=== PATIENT | female | born 1955 | race Caucasian/White ===

== ENCOUNTER 2025-02-27 10:24 | Day surgery (SDC) | payer MEDICARE, BC ==
[~2025-02-27] VITALS: Ht 165.1 cm; Wt 88.8 kg
[~2025-02-27 10:24] MED LIST: Lactated Ringer's 1,000 ML IV ONE; Lidocaine HCl 2% 10 ML SDA ONE
[2025-02-27] MEDS ORDERED: CeFAZolin Sodium 2,000 MG VIAL ONE (10:32)
[2025-02-27] MEDS ORDERED: CITALOPRAM HBR20 M9 PO (10:43)
[2025-02-27] MEDS ORDERED: FENOFIBRATE145 MG PO (10:43)
[2025-02-27] MEDS ORDERED: AMLODIPINE BESYL5 MG PO (10:43)
[2025-02-27] MEDS ORDERED: LISI20 PO (10:43)
[2025-02-27] MEDS ORDERED: Lactated Ringer's 1,000 ML IV ONE (11:01)
[2025-02-27] MEDS ORDERED: FentaNYL Citrate 50 MCG/ML 2 ML Injection ONE ×2 (11:06→13:28)
[2025-02-27] MEDS ORDERED: propofoL 20 ML IV ONE (11:06)
[2025-02-27] MEDS ORDERED: Midazolam HCl 1MG / ML 2ML Vial ONE (11:06)
[2025-02-27] MEDS ORDERED: HYDROmorphone HCl/Pf 1MG SYR ONE (11:19)
--- NOTE | 2025-02-27 11:29 | NUR ---
02/27/25 Catalino Rhodes 1125 PT RESTING ON GURNEY WITH EYES CLOSED. PT OPENS EYES TO GENTLE VERBAL STIMULI. PT DENIES NEEDS AT THIS TIME. CALL LIGHT WITH IN REACH.
[2025-02-27] MEDS ORDERED: Ondansetron HCl 2 MG / ML 2ML Vial ONE (12:31)
[2025-02-27] MEDS ORDERED: Dexamethasone Sod Phos 10 MG/ML 1ML VIAL ONE (12:31)
[2025-02-27] MEDS ORDERED: Phenylephrine HCl 100 MCG/ML-NS 10MLSYR (1MG/10ML) ONE (12:31)
[2025-02-27] MEDS ORDERED: Ketorolac Tromethamine 30mg Vial ONE (13:10)
--- NOTE | 2025-02-27 14:07 | NUR ---
02/27/25 1407 Gita Barrera AT BEDSIDE
[2025-02-27] MEDS ORDERED: HYDROcodone 5-APAP 325 TAB ONE (14:10)
== END 2025-02-27 15:00 | disposition home or self-care (01) ==
LOC: ORSCSDS 10:24
PROVIDERS: Orthopaedic Surgery
PROC: 0RQT0ZZ Repair Left Carpometacarpal Joint, Open Approach (ICD-10-PCS; principal; 2025-02-27 12:00)
DX: M18.12 Unilateral primary osteoarthritis of first carpometacarpal joint, left hand (principal); I10 Essential (primary) hypertension; E78.00 Pure hypercholesterolemia, unspecified; F32.A Depression, unspecified; Z87.891 Personal history of nicotine dependence; Z79.899 Other long term (current) drug therapy
CPT/HCPCS: A9270; C1713; J0690; J1100; J1171; J1885; J2003; J2250; J2371; J2405; J2704; J3010; J7120

== ENCOUNTER 2025-06-10 12:06 | Day surgery (SDC) | payer MEDICARE, BC ==
[~2025-06-10] VITALS: Ht 165.1 cm; Wt 84.9 kg
[~2025-06-10 12:06] MED LIST changes: +AMLODIPINE BESYL5 MG PO; +CITALOPRAM HBR20 M9 PO; +FENOFIBRATE145 MG PO; +Glycopyrrolate 0.2 MG/ML 1MLVIAL ONE; +LISI20 PO; -Lactated Ringer's 1,000 ML IV ONE; -Lidocaine HCl 2% 10 ML SDA ONE; +Ondansetron HCl 2 MG / ML 2ML Vial ONE; +ePHEDrine Sulfate 50 MG/ML 1ML Injection ONE
[2025-06-10] MEDS ORDERED: FOSAMAX70 MG (13:27)
== END 2025-06-10 15:41 | disposition home or self-care (01) ==
LOC: ORSCSDS 12:06
PROVIDERS: Surgery
PROC: 0DBN8ZX Excision of Sigmoid Colon, Via Natural or Artificial Opening Endoscopic, Diagnostic (ICD-10-PCS; principal; 2025-06-10 13:45)
PROC: 0DBP8ZX Excision of Rectum, Via Natural or Artificial Opening Endoscopic, Diagnostic (ICD-10-PCS; principal; 2025-06-10 13:45)
PROC: 0DBK8ZX Excision of Ascending Colon, Via Natural or Artificial Opening Endoscopic, Diagnostic (ICD-10-PCS; principal; 2025-06-10 13:45)
DX: Z12.11 Encounter for screening for malignant neoplasm of colon (principal); Z86.0100 Personal history of colon polyps, unspecified; D12.2 Benign neoplasm of ascending colon; K63.5 Polyp of colon; K64.1 Second degree hemorrhoids; D12.8 Benign neoplasm of rectum; K57.30 Diverticulosis of large intestine without perforation or abscess without bleeding; F41.9 Anxiety disorder, unspecified; F32.A Depression, unspecified; E78.00 Pure hypercholesterolemia, unspecified; I10 Essential (primary) hypertension; Z98.84 Bariatric surgery status; Z87.891 Personal history of nicotine dependence; Z79.899 Other long term (current) drug therapy
CPT/HCPCS: 88305; J0461; J2003; J2405; J2704; J7120; Q9968

== ENCOUNTER 2025-08-07 09:27 | Day surgery (SDC) | payer MEDICARE, BC ==
[~2025-08-07] VITALS: Ht 165.1 cm; Wt 86.2 kg
[~2025-08-07 09:27] MED LIST changes: +FOSAMAX70 MG; -Glycopyrrolate 0.2 MG/ML 1MLVIAL ONE; +Lidocaine HCl 2% 10 ML SDA ONE; -Ondansetron HCl 2 MG / ML 2ML Vial ONE; -ePHEDrine Sulfate 50 MG/ML 1ML Injection ONE
[2025-08-07] MEDS ORDERED: CeFAZolin Sodium 2,000 MG VIAL ONE (09:33)
[2025-08-07] MEDS ORDERED: Lidocaine HCl 2% 10 ML SDA ONE (09:42)
--- NOTE | 2025-08-07 09:55 | NUR ---
08/07/25 0955 Lizz Storm PT WAS RECOMMENDED FOR A BLOCK FROM DR MOHAMUD HOWEVER WHEN DISCUSSING THE BLOCK WITH DR WU THE PT STATED THAT SHE DIDN'T WANT A BLOCK. SHE STATED THAT WHEN SHE HAD THE SAME PROCEDURE DONE PREVIOUSLY SHE DID NOT HAVE A BLOCK AND IT WAS TOLERABLE. DR. MOHAMUD INFORMED OF NO BLOCK.
[2025-08-07] MEDS ORDERED: FentaNYL Citrate 50 MCG/ML 2 ML Injection ONE ×2 (10:00→11:27)
[2025-08-07] MEDS ORDERED: Lidocaine 1%-Epineph 1:100000 20 ML MDV INJ ONE (10:15)
[2025-08-07] MEDS ORDERED: Sodium Bicarb 8.4% Inj 1 MEQ/ML 10ML Vial XX ONE (10:15)
[2025-08-07] MEDS ORDERED: Rocuronium Bromide 10 MG/ML 5ML Injection IV ONE (10:28)
[2025-08-07] MEDS ORDERED: Ondansetron HCl 2 MG / ML 2ML Vial ONE (10:28)
[2025-08-07] MEDS ORDERED: Metoclopramide HCl 5MG / ML 2ML Vial ONE (10:28)
[2025-08-07] MEDS ORDERED: Sugammadex Sodium 200 MG/2ML SDV (100 MG/ML) ONE (10:46)
--- NOTE | 2025-08-07 10:52 | NUR ---
08/07/25 1052 Keyla Chaidez 7CC'S OF LOCAL USED.
[2025-08-07] MEDS ORDERED: Morphine Sulfate 4 MG/1 ML Injection ONE (11:10)
[2025-08-07] MEDS ORDERED: HYDROcodone 5-APAP 325 TAB ONE (12:01)
--- NOTE | 2025-08-07 12:44 | NUR ---
08/07/25 1244 SofiaAd briones 5/325 PO GIVEN AT 1210 FOR 6/10 RIGHT HAND PAIN. SHE TOLERATED FOOD AND FLUIDS. PAIN LEVEL DOWN TO 5/10 WORST BY TIME OF DISCHARGE. VS REMAINED STABLE, O2 SATS REMAINED IN MID 90S. IV REQUIRED REDRESSING DUE TO BLEED THROUGH, NO FURTHER ISSUES WITH THIS PRIOIR TO DISCHARGE
== END 2025-08-07 12:40 | disposition home or self-care (01) ==
LOC: ORSCSDS 09:27
PROVIDERS: Orthopaedic Surgery
PROC: 0RQS0ZZ Repair Right Carpometacarpal Joint, Open Approach (ICD-10-PCS; principal; 2025-08-07 11:30)
DX: M18.11 Unilateral primary osteoarthritis of first carpometacarpal joint, right hand (principal); I10 Essential (primary) hypertension; F41.9 Anxiety disorder, unspecified; F32.A Depression, unspecified; Z79.899 Other long term (current) drug therapy
CPT/HCPCS: A9270; C1713; C1889; J0690; J2003; J2270; J2405; J2704; J2765; J3010; J7120